=== PATIENT | female | born 1960 | race Caucasian/White ===

== ENCOUNTER 2016-06-14 06:08 | Day surgery (SDC) | payer OTHER ==
[~2016-06-14] VITALS: Ht 162.6 cm; Wt 77.6 kg
[~2016-06-14 06:08] MED LIST: ACET1TAB40 PO; NAPR-260 PO; OXYC-279 PO
[2016-06-14 06:44] VITALS: Ht 162.6 cm; Wt 77.6 kg
[2016-06-14] MEDS ORDERED: CHOLESTEROL MED (07:13)
[2016-06-14] MEDS ORDERED: BLOOD PRESSURE MED (07:13)
[2016-06-14] MEDS ORDERED: OMEP20CA16 PO (07:13)
[2016-06-14 07:23] VITALS: BP 146/81; PULSE 74; RESP 16
[2016-06-14] MEDS ORDERED: FENTAnyl 50 MCG/ML VIAL ONE (08:34)
[2016-06-14] MEDS ORDERED: MIDAZOLAM 1 MG/ML 2 ML INJ ONE ×3 (08:34→08:35)
[2016-06-14 09:05] VITALS: BP 113/74; PULSE 69; RESP 24
--- NOTE | 2016-06-14 12:32 | GILP ---
DATE OF PROCEDURE: NAME OF PROCEDURES: 1. Esophagogastroduodenoscopy and biopsy. 2. Colonoscopy and biopsy. SURGEON: Amanda Botello MD PREOPERATIVE DIAGNOSES: 1. Abdominal pain. 2. Chronic heartburn. 3. Screening colonoscopy. POSTOPERATIVE DIAGNOSES: 1. Gastroesophageal reflux disease. 2. Gastritis with erosions. 3. Gastric mucosal biopsies were taken for Helicobacter pylori test. 4. Colonoscopy all the way to the cecum. 5. Two small colon polyps were removed using the biopsy forceps. 6. Internal hemorrhoids. INDICATION FOR THE PROCEDURE: Ms. Carri Alamo is a 55-year-old female patient who had upper abdo byron pain and chronic heartburn, not responding to therapy. She also needed screening colonoscopy. The procedures and possible complications are well explained to the patient, she understood and cons ented to the procedure. DESCRIPTION OF PROCEDURE: Under the influence of fentanyl and Versed, the gastroscope was carefully introduced into the esophagus and under direct vision, it was advanced to the stomach and through t he pylorus into the duodenal bulb and descending duodenum. FINDINGS: ESOPHAGUS: The patient had gastroesophageal reflux disease. STOMACH: She had gastritis with erosions. Gastric mucosal biopsies were taken for H. pylori test. DUODENUM: Normal. The colonoscope was carefully introduced in the rectum and under direct vision, it was advanced all the way to the cecum. FINDINGS: The patient had a small sigmoid colon polyp as well as a polyp in the cecum and they were removed using the biopsy forceps. She was noted to have internal hemorrhoids. She tolerated the procedures very well and there was no complication from the procedures. At the en d of the procedures, she was awake with stable vital signs and she was discharged home to the care o f her family. IMPRESSION: 1. Gastroesophageal reflux disease. 2. Gastritis with erosions. 3. Gastric mucosal biopsies were taken for Helicobacter pylori test. 4. Colonoscopy all the way to the cecum. 5. Two small colon polyps from the sigmoid colon as well as the cecum were removed using the biopsy forceps. 6. Internal hemorrhoids. PLAN: 1. Continue omeprazole. 2. Add Zantac 300 mg p.o. at bedtime. 3. Await histopathology reports. 4. Next screening colonoscopy in 10 years. Dictated By: AMANDA MODI/PAZ Conf#: [id number] DID#: [id number]
== END 2016-06-14 09:21 | disposition home or self-care (01) ==
LOC: GIL 06:08
PROVIDERS: ATTEND Internal Medicine Gastroenterology
DX: Z12.11 Encounter for screening for malignant neoplasm of colon (principal); K63.5 Polyp of colon; K29.60 Other gastritis without bleeding; B96.81 Helicobacter pylori [H. pylori] as the cause of diseases classified elsewhere; K64.8 Other hemorrhoids; K21.9 Gastro-esophageal reflux disease without esophagitis
CPT/HCPCS: 43239; 45380; 87081; 88305; J2250; J3010; Z7610

== ENCOUNTER 2017-06-24 19:51 | Emergency (ER) | END 2017-06-25 02:04 | disposition home or self-care (01) ==

== ENCOUNTER 2017-07-18 08:30 | Emergency (ER) | END 2017-07-18 11:59 | disposition home or self-care (01) ==

== ENCOUNTER 2017-07-22 08:49 | Emergency (ER) | END 2017-07-22 10:49 | disposition home or self-care (01) ==